=== PATIENT | female | born 1975 | race Caucasian/White ===

== ENCOUNTER 2022-02-23 06:50 | Day surgery (SDC) | payer BC ==
[~2022-02-23] VITALS: Ht 165.1 cm; Wt 57.3 kg
[~2022-02-23 06:50] MED LIST: ACETAMINOPHEN-1 EAC1 PO; ACETAMINOPHEN325 M1 PO; ACETAMINOPHEN500 MG PO; CIPRO500 MG PO; CYCLOBENZAPRINE5 MG PO; DICLOFENAC SODI50 MG PO; DULERA 100 MCG/13 GM IH; DULERA 200 MCG/13 GM IH; ELOCON30 ML TOP; FLUZONE IM; HYDROCODON-ACE1 EA10 PO; IBUPROFEN600 MG PO; ISORDIL40 MG PO; KEFLEX500 MG PO; LEVAQUIN500 MG PO; LIPITOR40 MG PO; MECLIZINE HCL25 MG PO; MELOXICAM15 MG PO; METOPROLOL SUCC25 MG PO; MOBIC15 MG PO; NICORETTE2 MG BUCCAL; NITROSTAT0.4 MG SL; NORCO 5-325 TA1 EACH PO; OSTEO BI-FLEX1 EAC1 PO; OXYCODON-ACETA1 EAC2 PO; PERCOCET 5-3251 EACH PO; PREDNISONE20 MG PO; PROMETHAZINE HC25 M1 PO; ZITHROMAX250 MG PO; ZOFRAN ODT4 MG PO
--- NOTE | 2022-02-23 10:27 | NUR ---
PT ALERT, ORIENTED AND SUPPORTED BY HER MARLYN. PT ANXIOUS, ABLE TO TALK ABOUT HER NEEDS. FEELS BETTER THAT TODAY HAS BEEN EXPLAINED IN DETAIL GAVE ENCOURAGEMENT, PT DECLINED PRAYER AT THIS TIME. PT SAID SHE HAS BEEN PRAYING ALOT LATELY. MARLYN WILL RETURN FOR DC. GAVE BLESSING
--- NOTE | 2022-02-23 10:31 | NUR ---
02/23/22 1031 Sanjuanita Fernández 1026 PATIENT ARRIVES TO PACU RESTING WITH EYES CLOSED. OPENS EYES WITH VERBAL STIMULI. RESP EVEN AND UNLABORED, MASK AT 6 LITERS. PATIENT REPORTS MINIMAL PAIN. NO NAUSEA. 1028 OXYGEN MASK OFF. COARSE COUGH NOTED. RESP EVEN AND UNLABORED, ROOM AIR SATS 100%.
[2022-02-23] MEDS ORDERED: ACETAMINOPHEN500 MG PO (10:41)
[2022-02-23] MEDS ORDERED: IBUPROFEN600 MG PO (10:41)
[2022-02-23] MEDS ORDERED: OXYCODON-ACETA1 EAC2 PO (10:41)
--- NOTE | 2022-02-23 11:06 | NUR ---
PATIENT BACK IN DAY SURGERY ROOM FROM PACU. DENIES PAIN. VS CHECKED. LEFT BREAST DRESSING CLEAN, DRY AND INTACT. RIGHT AC IV WNL. SCDs ON. TOLERATING ICE CHIPS. ICE WATER PLACED AT BEDSIDE. PATIENT GIVEN COFFEE WITH CREAM AND SUGAR PER REQUEST. AT BEDSIDE. CALL LIGHT WITHIN REACH.
--- NOTE | 2022-02-23 12:34 | NUR ---
1203 PATIENT IS ALERT AND ORIENTED. PATIENT COMPLAINS OF 2/10 PAIN AT SURGICAL SITE. SITE IS CLEAN, DRY AND INTACT. PATIENT SAYS PAIN IS IMPROVING. DENIES ANY NAUSEA. PATIENT ABLE TO VOID 100 MLS OF CLEAR AND YELLOW URINE. 1230 PATIENT ABLE TO MEET DISCHRAGE CRITERIA. PATIENT IV D/C'D WNL. PATIENT ABLE TO DRESS SELF TOLERATED IT WELL. PATIENT WAS WHEELED OUT OF FACILITY WITH TO PRIVATE AUTO.
--- NOTE | 2022-02-24 15:34 | OR ---
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 PROCEDURE: Needle localized excision of left upper outer quadrant of breast. ANESTHESIA: General, LMA; Tawnya Barajas CRNA. INDICATION: This 47-year-old white woman is a patient of Dr. Tani Ferrari. She underwent mammogram and ultimately ultrasound and biopsy of a BI-RADS category 4 abnormality at the 1 o'clock position 3 cm from the nipple in the left breast. The lesion was solid and measured 11 mm in size. The pathologic findings confirmed focal atypical ductal hyperplasia, possibly arising in a fibroepithelial lesion, possibly fibroadenoma. Fibrocystic changes were considered likely as well. Given histology of the finding, wide excision has been recommended. The localized approach would be appropriate as there was no palpable abnormality. The risk of bleeding, infection, cosmetic deformity, and need for additional treatment were reviewed in detail. She understands and wished to proceed. FINDINGS: The wire was well localized. It entered the breast from a medial position. A circumareolar incision was made and wide resection of the abnormality undertaken in continuity with the wire after delivering the wire through a subdermal flap. The excised specimen extended widely and deeply and specimen radiograph confirmed the offending lesion to be in the excised specimen. Good cosmesis was preserved. PROCEDURE IN DETAIL: The patient has received from the radiology suite with the wire taped in place on the left side. She underwent a general LMA type anesthetic. Preoperative antibiotic clindamycin was given. The needle was trimmed in length and the breast prepared with a spray of chlorhexidine solution due to an allergy to Betadine solution. Electronically Signed By: DHARMESH RAMOS MD 02/24/22 1534 PATIENT NAME: ANSON WRIGHT OPERATIVE REPORT DATE OF : 71 REPORT #: [id number] PHYSICIAN: DHARMESH RAMOS MD PCP: TANI FERRARI MD REPORT IS CONFIDENTIAL AND NOT TO BE RELEASED WITHOUT AUTHORIZATION [facility] [address] [place], [place] [address] Signed After sterile draping, a curvilinear incision was made in the areolar margin extending from the 12 o'clock to 4 o'clock position. The flap was elevated cephalad and the wire, which was a few cm cephalad to that was delivered into the wound. The parenchyma of the breast was grasped with an Allis clamp and using primarily electrocautery, wide and deep resection was undertaken incorporating the wire and its contents. This was sent for specimen radiograph. Hemostasis was assured with electrocautery. Irrigation with sterile water was undertaken in the wound. There appeared to be no ongoing bleeding. The parenchyma was reapproximated with interrupted 2-0 Vicryl. The skin was then closed with a running subcuticular 3-0 Vicryl. Steri-Strips were applied as was Acticoat dressing. Sponge, needle, and instrument counts were reported as correct x3. Dharmesh Ramos MD /MODL /[id number] cc: MD Dr. Ankit Acevedo MD Copies: DAVEY RIVERO MD, ROBERT D DMD ~ Electronically Signed By: DHARMESH RAMOS MD 02/24/22 1534 PATIENT NAME: ANSON WRIGHT OPERATIVE REPORT DATE OF : 71 REPORT #: [id number] PHYSICIAN: DHARMESH RAMOS MD PCP: TANI FERRARI MD REPORT IS CONFIDENTIAL AND NOT TO BE RELEASED WITHOUT AUTHORIZATION
--- NOTE | 2022-02-26 12:48 | PATH ---
[facility] [address], [place] [address] Signed SPECIMEN(S): A LEFT BREAST SPECIMEN SOURCE: A. LEFT BREAST CLINICAL HISTORY: Abnormal mammogram, diffuse multi nodules. 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 - Negative for in situ carcinoma or malignancy. - Biopsy site changes identified. - Microcalcifications present in benign breast epithelium. JVR:[facility]:C2NR MICROSCOPIC EXAMINATION: Histologic sections of all submitted blocks are examined by light microscopy. These findings, together with the gross examination, support the pathologic diagnosis. A Smooth Muscle Myosin stain is performed with appropriate controls on block (A2) and highlights myoepithelial cells in the area of concern, supporting the diagnosis. JVR:[facility] GROSS DESCRIPTION: The specimen, labeled "Anson Vu," and designated on the requisition "left breast," is received in formalin and consists of 31-gram unoriented portion of yellow-faria fibroadipose tissue (6.1 x 4.4 x 3.2 cm) with an inserted metal localization wire. The specimen is inked in blue and serially sectioned perpendicular to the long axis revealing a 1.5 x 1.1 x 0.8 cm pink well-circumscribed nodule. The nodule has a pink glistening cut surface and is surrounded by a white-faria rubbery cystic fibrous tissue. Approximately 90% of the specimen is a yellow-faria greasy adipose tissue and 10% is a pink rubbery fibrous tissue. The nodule is entirely submitted for histologic examination. Process Cheese Cooker sections are submitted in six cassettes. Cassette summary: (A1-A2) nodule* PATIENT NAME: ANSON VU PATHOLOGY DATE OF : 71 REPORT #: [id number] PHYSICIAN: JOHNNY PATHOLOGY PCP: TANI FERRARI MD REPORT IS CONFIDENTIAL AND NOT TO BE RELEASED WITHOUT AUTHORIZATION [facility] [address], [place] [address] Signed (A3-A6) fibroadipose tissue surrounding nodule *A adelina-shaped clip is located in (A1) per histology Cold ischemia time: Insufficient data to calculate. Approximate Formalin time: 24 hours. FB (under the direct supervision of a pathologist) The Gross Description was prepared using a voice recognition system. The report was reviewed for accuracy; however, sound-alike word errors, addition and/or deletions may occur. If there is any question about this report, please contact Client Services. ADDITIONAL NOTES: Immunohistochemical and/or in situ hybridization studies were performed on this case with the appropriate positive controls that react as expected. This test was developed and its performance characteristics determined by [facility]. It has not been cleared or approved by the U.S. Food and Drug Administration. The FDA has determined that such clearance or approval is not necessary. This test is used for clinical purposes. It should not be regarded as investigational or for research. [facility] is certified under the Clinical Laboratory Improvement Amendments of 1988 (CLIA) as qualified to perform high complexity clinical laboratory testing. This assay has not been validated for specimens that have been decalcified. PERFORMING LABORATORY: The technical component was performed by [facility], [address] [place] [id number] (CLIA# [id number]). Professional interpretation was performed by [facility], [address] [place] [address], [place] [address] (CLIA#: [id number]). Diagnostician: Heladio Hendricks MD Pathologist Electronically Signed 02/26/2022 Copies: ~ PATIENT NAME: ANSON VU DAVID PATHOLOGY DATE OF : 71 REPORT #: [id number] PHYSICIAN: JOHNNY MELVIN PCP: TANI FERRARI MD REPORT IS CONFIDENTIAL AND NOT TO BE RELEASED WITHOUT AUTHORIZATION
== END 2022-02-23 12:30 | disposition home or self-care (01) ==
LOC: DS 06:50 → OPS 06:50 → DS 08:00 → EDSTATUS 08:00 → OPS 08:00 → US 08:00 → OPS 12:30
PROVIDERS: ATTEND Surgery
PROC: 0HB5XZZ Excision of Chest Skin, External Approach (ICD-10-PCS; 2022-02-23)
PROC: BH01ZZZ Plain Radiography of Left Breast (ICD-10-PCS; principal; 2022-02-23 09:00)
DX: D24.2 Benign neoplasm of left breast (principal); N60.92 Unspecified benign mammary dysplasia of left breast; I10 Essential (primary) hypertension; J68.3 Other acute and subacute respiratory conditions due to chemicals, gases, fumes and vapors; F17.210 Nicotine dependence, cigarettes, uncomplicated; Z88.5 Allergy status to narcotic agent; Z88.0 Allergy status to penicillin; Z88.2 Allergy status to sulfonamides; Z88.8 Allergy status to other drugs, medicaments and biological substances; Z86.16 Personal history of COVID-19
CPT/HCPCS: 00400; 76098; 76942; 77065; A9270; J1100; J1644; J1885; J2001; J2250; J2370; J2405; J2704; J3010; J7121